=== PATIENT | female | born 1980 | race Two or more races ===

== ENCOUNTER 2020-01-19 12:11 | Emergency (ER) | payer OTHER ==
[~2020-01-19] VITALS: Ht 160 cm; Wt 56.2 kg
[2020-01-19] MEDS ORDERED: ZOLOFT100 MG PO (12:22)
[2020-01-19] MEDS ORDERED: ADDERALL 30 MG30 MG PO (12:23)
[2020-01-19] MEDS ORDERED: KETO10TA2 PO (13:28)
[2020-01-19] MEDS ORDERED: BACTRIM DS TAB1 EACH PO (13:28)
[2020-01-19] MEDS ORDERED: ESGIC CAPSULE1 EACH PO (13:28)
== END 2020-01-19 13:32 | disposition home or self-care (01) ==
LOC: ER 12:11
DX: L02.412 Cutaneous abscess of left axilla (principal)

== ENCOUNTER 2020-01-21 14:08 | Emergency (ER) | payer OTHER ==
[~2020-01-21] VITALS: Ht 160 cm; Wt 51.7 kg
[~2020-01-21 14:08] MED LIST: ADDERALL 30 MG30 MG PO; BACTRIM DS TAB1 EACH PO; ESGIC CAPSULE1 EACH PO; KETO10TA2 PO; ZOLOFT100 MG PO
== END 2020-01-21 20:13 | disposition home or self-care (01) ==
LOC: ER 14:08
DX: G44.89 Other headache syndrome (principal); L02.412 Cutaneous abscess of left axilla; Z03.818 Encounter for observation for suspected exposure to other biological agents ruled out

== ENCOUNTER → 2020-01-26 | Outpatient (CLI) | payer OTHER | END | disposition home or self-care (01) | LOC: SONOGRAMA 09:54 | PROVIDERS: ATTEND Specialist | DX: R22.32 Localized swelling, mass and lump, left upper limb (principal) ==

== ENCOUNTER 2020-01-31 14:54 | Outpatient (CLI) | payer OTHER | END 2020-01-31 15:05 | disposition home or self-care (01) | LOC: RAD 14:54 | PROVIDERS: ATTEND Specialist | DX: Z01.811 Encounter for preprocedural respiratory examination (principal); R22.32 Localized swelling, mass and lump, left upper limb ==

== ENCOUNTER 2020-02-03 07:00 | Day surgery (SDC) | payer OTHER | END 2020-02-03 16:05 | disposition home or self-care (01) | LOC: CIR.AMB 07:00 | PROVIDERS: ATTEND Specialist | DX: L72.0 Epidermal cyst (principal); Z20.828 Contact with and (suspected) exposure to other viral communicable diseases ==

== ENCOUNTER 2020-08-21 13:27 | Outpatient (CLI) | payer OTHER ==
[2020-11-04] MEDS ORDERED: CLONAZEPAM0.5 MG PO (14:57)
== END 2020-08-21 13:35 | disposition home or self-care (01) ==
LOC: RAD 13:27
PROVIDERS: ATTEND Internal Medicine
DX: J44.1 Chronic obstructive pulmonary disease with (acute) exacerbation (principal)

== ENCOUNTER → 2020-11-04 | Emergency (ER) | payer OTHER ==
[~2020-11-04] VITALS: Ht 162.6 cm; Wt 52.2 kg
[~2020-11-04] MED LIST changes: +CLONAZEPAM0.5 MG PO
== END | disposition home or self-care (01) ==
LOC: ER 13:56
DX: L03.112 Cellulitis of left axilla (principal); L02.412 Cutaneous abscess of left axilla

== ENCOUNTER 2022-01-15 09:24 | Emergency (ER) | payer OTHER ==
[~2022-01-15] VITALS: Ht 160 cm; Wt 51.3 kg
[2022-01-15] MEDS ORDERED: ZOLOFT100 MG (09:50)
[2022-01-15] MEDS ORDERED: TOPAMAX50 MG (09:50)
[2022-01-15] MEDS ORDERED: MEDROLPACK PO (12:50)
[2022-01-15] MEDS ORDERED: G-ZYNCOF 20-40473 ML PO (12:50)
[2022-01-15] MEDS ORDERED: PROMETH-CODEIN 65 ML PO (12:50)
[2022-01-15] MEDS ORDERED: IPRAT-ALBUT 0.5-3 ML IH (12:50)
[2022-01-15] MEDS ORDERED: BUDESONIDE0.5 MG/2 M IH (12:50)
== END 2022-01-15 13:52 ==
LOC: ER 09:24
DX: J98.01 Acute bronchospasm (principal); J06.9 Acute upper respiratory infection, unspecified; Z20.822 Contact with and (suspected) exposure to COVID-19